=== PATIENT | female | born 1990 | race Caucasian/White ===

== ENCOUNTER 2020-10-10 17:35 | Observation (INO) | payer OTHER ==
[2020-10-10 18:13] VITALS: BP 109/63
[2020-10-10 18:28] LABS: MICROSCOPIC INDICATED
== END 2020-10-10 21:50 | disposition home or self-care (01) ==
LOC: LDOP 17:35 → LDIP 20:00
PROVIDERS: ADMIT Obstetrics & Gynecology Maternal & Fetal Medicine; ATTEND Obstetrics & Gynecology Maternal & Fetal Medicine
DX: O26.892 Other specified pregnancy related conditions, second trimester (principal); R10.9 Unspecified abdominal pain; Z3A.27 27 weeks gestation of pregnancy
CPT/HCPCS: 81001; 87086; 99211; G0378; G0463

== ENCOUNTER 2020-10-24 14:40 | Outpatient (CLI) | payer OTHER ==
[~2020-10-24] VITALS: Ht 167.6 cm; Wt 68.2 kg
[2020-10-24 16:49] LABS: MICROSCOPIC INDICATED
[2020-10-24 17:28] VITALS: BP 107/73
[2020-12-10] MEDS ORDERED: DOCU-131 PO (14:46)
[2020-12-10] MEDS ORDERED: IBUP-1222 PO (14:46)
== END 2020-10-24 17:25 | disposition home or self-care (01) ==
LOC: LDOP 14:40
PROVIDERS: ATTEND Obstetrics & Gynecology Maternal & Fetal Medicine
DX: O46.93 Antepartum hemorrhage, unspecified, third trimester (principal); Z3A.29 29 weeks gestation of pregnancy
CPT/HCPCS: 59025; 81001; 89060; Q0114

== ENCOUNTER 2020-11-09 15:33 | Outpatient (CLI) | payer OTHER ==
[2020-11-09 18:26] LABS: MICROSCOPIC INDICATED
[2020-11-09] MEDS ORDERED: ACETAMINOPHEN 325 MG TABLET PO ONE (19:30)
[2020-11-09] MEDS ORDERED: ACETAMINOPHEN 325 MG TABLET ONE (19:32)
== END 2020-11-09 20:55 | disposition home or self-care (01) ==
LOC: LDOP 15:33
PROVIDERS: ATTEND Obstetrics & Gynecology Maternal & Fetal Medicine
DX: O26.893 Other specified pregnancy related conditions, third trimester (principal); R10.9 Unspecified abdominal pain; Z3A.32 32 weeks gestation of pregnancy
CPT/HCPCS: 59025; 81001; 84112; 87086

== ENCOUNTER 2020-11-29 16:44 | Outpatient (CLI) | payer OTHER ==
[~2020-11-29] VITALS: Ht 167.6 cm; Wt 71.8 kg
[2020-11-29 16:48] VITALS: BP 104/64
== END 2020-11-29 17:21 | disposition home or self-care (01) ==
LOC: LDOP 16:44
PROVIDERS: ATTEND Obstetrics & Gynecology Maternal & Fetal Medicine
DX: O26.893 Other specified pregnancy related conditions, third trimester (principal); R10.9 Unspecified abdominal pain; Z3A.35 35 weeks gestation of pregnancy
CPT/HCPCS: 59025